=== PATIENT | female | born 1950 | race American Indian/Alaskan Native ===

== ENCOUNTER 2017-10-26 13:27 | Inpatient (IN) | payer OTHER ==
[2017-10-26 13:28] VITALS: BMI 39.6
--- NOTE | 2017-10-26 15:05 | ED PDOC ---
Arrival/HPI - General Historian: Patient - History of Present Illness Time/Duration: > week Symptom Onset: Gradual Activities at Onset: Light Context: Home <Juliette Schmidt - Last Filed: 10/26/17 16:30> <Scott Cheek DO - Last Filed: 10/26/17 22:36> - General Chief Complaint: Lower Extremity Problem/Injury Time Seen by Provider: 10/26/17 14:07 - History of Present Illness Narrative History of Present Illness (Text): 10/26/17 14:58 This is a 67 year old female with PMH of multiple sclerosis, OA, breast cancer left breast s/p lumpectomy, DM2 and HT presenting to the ER for B/L leg swelling and drainage from her right leg. She states that she has been on furosemide, losartan and HCTZ for years but has never had leg swelling. She went to the ER satellite in [place] on Tuesday and has a doppler ultrasound done which was negative for abnormalities of her legs and sent home on bactrim. She states the swelling and drainage have gotten worse since then. She denies CP, SOB, abdominal pain, headaches, cough, fevers, nausea, vomiting, urinary symptoms, melena, back pain, recent sickness and recent travel. PCP is Dr. Jurado (Juliette Schmidt) Past Medical History - Provider Review Nursing Documentation Reviewed: Yes - Infectious Disease Hx of Infectious Diseases: None - Tetanus Immunization Tetanus Immunization: Unknown - Cardiac Hx Hypertension: Yes - Pulmonary Hx Respiratory Disorders: No - Neurological Hx Multiple Sclerosis: Yes - HEENT Hx HEENT Disorder: No - Renal Hx Renal Disorder: No - Endocrine/Metabolic Hx Endocrine Disorders: Yes (DM) - Hematological/Oncological Hx Cancer: Yes (Rt breast) - Integumentary Hx Dermatological Disorder: No - Musculoskeletal/Rheumatological Hx Arthritis: Yes Hx Osteoarthritis: Yes - Genitourinary/Gynecological Hx Genitourinary Disorders: No - Psychiatric Hx Psychophysiologic Disorder: No Hx Depression: No Hx Emotional Abuse: No Hx Physical Abuse: No Hx Substance Use: No - Surgical History Hx Cholecystectomy: Yes Hx Mastectomy: Yes Hx Orthopedic Surgery: Yes (bilateral knees) - Anesthesia Hx Anesthesia: Yes - Suicidal Assessment Feels Threatened In Home Enviroment: No <Juliette Schmidt - Last Filed: 10/26/17 16:30> Family/Social History - Physician Review Nursing Documentation Reviewed: Yes Family/Social History: Unknown Family HX Smoking Status: Never Smoked Hx Alcohol Use: No Hx Substance Use: No Hx Substance Use Treatment: No <Juliette Schmidt - Last Filed: 10/26/17 16:30> Allergies/Home Meds <Juleitte Schmidt - Last Filed: 10/26/17 16:30> <Adia DOScott - Last Filed: 10/26/17 22:36> Allergies/Adverse Reactions: Allergies No Known Allergies Allergy (Verified 10/26/17 19:38) Home Medications: Home Meds Medication Instructions Recorded Confirmed Losartan/Hydrochlorothiazide 1 mg PO DAILY 11/04/14 10/26/17 [Hyzaar 12.5 mg-100 mg] Alprazolam [Xanax] 0.25 mg PO HS 10/26/17 10/26/17 Amlodipine Besylate/Benazepril 10 mg PO DAILY 10/26/17 10/26/17 [Amlodipine-Benazepril 2.5-10] Furosemide [Lasix] 20 mg PO DAILY 10/26/17 10/26/17 Levocetirizine Dihydrochloride 5 mg PO DAILY 10/26/17 10/26/17 [Xyzal] Sulfamethoxazole/Trimethoprim 1 tab PO BID 10/26/17 10/26/17 [Bactrim 400-80 mg Tablet] Review of Systems - Physician Review All systems were reviewed & negative as marked: Yes - Review of Systems Constitutional: Normal. absent: Fevers Eyes: Normal. absent: Vision Changes ENT: Normal. absent: Hearing Changes Respiratory: Normal. absent: SOB, Cough Cardiovascular: Other (B/L leg swelling and drainage from right leg). absent: Chest Pain, Palpitations Gastrointestinal: Normal. absent: Abdominal Pain, Constipation, Diarrhea, Nausea, Vomiting, Hematochezia, Hematemesis Genitourinary Female: Normal. absent: Dysuria, Frequency Musculoskeletal: Normal Skin: Normal Neurological: Normal. absent: Headache Psychiatric: Normal <Juliette Schmidt - Last Filed: 10/26/17 16:30> Physical Exam Vital Signs Reviewed: Yes Temperature: Afebrile Blood Pressure: Normal Pulse: Regular Respiratory Rate: Normal Appearance: Positive for: Well-Appearing, Non-Toxic, Comfortable Pain Distress: None Mental Status: Positive for: Alert and Oriented X 3 - Systems Exam Head: Present: Atraumatic, Normocephalic Pupils: Present: PERRL Extroacular Muscles: Present: EOMI Conjunctiva: Present: Normal Mouth: Present: Moist Mucous Membranes Neck: Present: Normal Range of Motion Respiratory/Chest: Present: Clear to Auscultation, Good Air Exchange. No: Respiratory Distress, Accessory Muscle Use Cardiovascular: Present: Regular Rate and Rhythm, Normal S1, S2. No: Murmurs Abdomen: No: Tenderness, Distention, Peritoneal Signs, Rebound, Guarding Back: Present: Normal Inspection Upper Extremity: Present: Normal Inspection. No: Cyanosis, Edema Lower Extremity: Present: NORMAL PULSES, Other (Swelling B/L legs, with gross yellow fluid and pus draining from the right anterior leg). No: CALF TENDERNESS , Cyanosis, Álvaro's Sign Neurological: Present: Speech Normal, Motor Func Grossly Intact, Normal Sensory Function Skin: Present: Warm, Dry, Normal Color. No: Rashes Psychiatric: Present: Alert, Oriented x 3, Normal Insight, Normal Concentration <Juliette Schmidt - Last Filed: 10/26/17 16:30> Vital Signs Temp Pulse Resp BP Pulse Ox 10/26/17 18:00 98.2 F 62 18 125/63 100 10/26/17 16:39 98.2 F 60 18 127/63 100 10/26/17 13:28 98.1 F 63 18 108/57 L 97 Medical Decision Making <Juliette Schmidt - Last Filed: 10/26/17 16:30> <Scott Cheek DO - Last Filed: 10/26/17 22:36> ED Course and Treatment: 10/26/17 15:09 Impression: This is a 67 year old female with PMH of multiple sclerosis, OA, breast cancer left breast s/p lumpectomy, DM2 and HT presenting to the ER for B/ L leg swelling and drainage from her right leg. Differential not limited to: Cellulitis vs DVT vs diabetic ulcer vs venous insufficiency Plan: -Blood work, BNP -Doppler -blood culture -Cxray Progress: 10/26/17 16:29 Patient resting comfortably, vitals are stable and afebrile. Patient to be admitted for observation. 10/26/17 16:30 Chest xray: no acute disease Doppler: right and left leg are negative for clots (Juliette Schmidt) 10/26/17 15:32 67 year old female presents to the Emergency department for evaluation of bilateral leg swelling. In agreement with resident note, which includes further HPI details. Patient was seen and evaluated with resident, came up with plan and treatment together. (Scott Cheek DO) - Lab Interpretations Lab Results: 10/26/17 14:46 10/26/17 14:46 Lab Results 10/26/17 14:46: Sodium 142, Potassium 3.7, Chloride 101, Carbon Dioxide 30, Anion Gap 15, BUN 25 H, Creatinine 1.5 H, Est GFR ( Amer) 42, Est GFR ( Non-Af Amer) 35, Random Glucose 102, Calcium 10.3, Total Bilirubin 0.4, AST 25, ALT 19, Alkaline Phosphatase 101, NT-Pro-B Natriuret Pep 33.4, Total Protein 8.4 H, Albumin 4.1, Globulin 4.3, Albumin/Globulin Ratio 1.0 L 10/26/17 14:46: WBC 6.5, RBC 4.40, Hgb 12.5, Hct 36.3, MCV 82.5, MCH 28.4, MCHC 34.4, RDW 15.3 H, Plt Count 266, MPV 9.9, Gran % 57.6, Lymph % (Auto) 27.6, [place] % (Auto) 8.8 H, Eos % (Auto) 5.2 H, Baso % (Auto) 0.8, Gran # 3.74, Lymph # (Auto) 1.8, [place] # (Auto) 0.6, Eos # (Auto) 0.3, Baso # (Auto) 0.05 - RAD Interpretation Radiology Orders: 10/26/17 14:48 CHEST PORTABLE [RAD] Stat DUPLEX LOWER EXTRM VEIN BILAT [US] Stat - Medication Orders Current Medication Orders: Acetaminophen (Tylenol 325mg Tab) 650 mg PO Q6H PRN PRN Reason: Pain, Mild (1-3) Alprazolam (Xanax) 0.25 mg PO HS PHIL PRN Reason: Protocol Stop: 11/02/17 22:01 Last Admin: 10/26/17 22:02 Dose: 0.25 mg Behavioural Document 10/26/17 22:02 BR (Rec: 10/26/17 22:02 [place] [id number]) Maintenance Maintenance Dose Yes Amlodipine Besylate (Norvasc) 5 mg PO DAILY PHIL Dextrose (Dextrose 50% Inj) 0 ml IV STAT PRN; Protocol PRN Reason: Hypoglycemia Protocol Hydrochlorothiazide (Microzide) 12.5 mg PO DAILY PHIL Sodium Chloride (Sodium Chloride 0.9%) 1,000 mls @ 75 mls/hr IV .[id number] PHIL Last Admin: 10/26/17 22:01 Dose: 75 mls/hr eMAR Start Stop Document 10/26/17 22:01 BR (Rec: 10/26/17 22:01 [place] [id number]) Intravenous Solution Start Date 10/26/17 Start Time 22:01 Dextrose (Dextrose 5% In Water 1000 Ml) 1,000 mls @ 0 mls/hr IV .Q0M PRN; Protocol; Per Protocol PRN Reason: Hypoglycemia Protocol Insulin Human Lispro (Humalog Low) 0 units SC ACHS PHIL PRN Reason: Protocol Last Admin: 10/26/17 22:01 Dose: Not Given Non-Admin Reason: Blood Sugar Parameter MAR Blood Glucose Document 10/26/17 22:01 BR (Rec: 10/26/17 22:02 [place] [id number]) Blood Glucose Finger Stick Blood Glucose (70-120) 109 Loratadine (Claritin) 10 mg PO DAILY PHIL Losartan Potassium (Cozaar) 100 mg PO DAILY PHIL Discontinued Medications Cefepime HCl (Maxipime 1gm) 1 gm in 100 mls @ 100 mls/hr IVPB STAT STA PRN Reason: Protocol Stop: 10/26/17 17:12 Last Admin: 10/26/17 16:43 Dose: 100 mls/hr eMAR Start Stop Document 10/26/17 16:43 LA (Rec: 10/26/17 16:43 LA [id number]) Intravenous Solution Start Date 10/26/17 Start Time 16:43 End Date 10/26/17 End time 17:43 Total Infusion Time 60 Vancomycin HCl (Vancomycin 1gm) 1 gm in 250 mls @ 167 mls/hr IVPB STAT STA PRN Reason: Protocol Stop: 10/26/17 17:42 Last Admin: 10/26/17 18:01 Dose: 167 mls/hr eMAR Start Stop Document 10/26/17 18:01 SAIMA (Rec: 10/26/17 18:01 LA [id number]) Intravenous Solution Start Date 10/26/17 Start Time 18:01 End Date 10/26/17 End time 19:31 Total Infusion Time 90 - PA / AUTOMATION CLERK / Resident Statement TONI has reviewed & agrees with the documentation as recorded. / has examined the patient and agrees with the treatment plan. <Juliette Schmidt - Last Filed: 10/26/17 16:30> - PA / AUTOMATION CLERK / Resident Statement TONI has reviewed & agrees with the documentation as recorded. / has examined the patient and agrees with the treatment plan. - Scribe Statement The provider has reviewed the documentation as recorded by the Scribe <Scott Cheek DO - Last Filed: 10/26/17 22:36> - Scribe Statement Javid Escobar. All medical record entries made by the Scribe were at my direction and personally dictated by me. I have reviewed the chart and agree that the record accurately reflects my personal performance of the history, physical exam, medical decision making, and the department course for this patient. I have also personally directed, reviewed, and agree with the discharge instructions and disposition. (Scott Cheek DO) Disposition/Present on Arrival - Present on Arrival History of DVT/PE: No History of Uncontrolled Diabetes: No Urinary Catheter: No History of Decub. Ulcer: No History Surgical Site Infection Following: None <Juliette Schmidt - Last Filed: 10/26/17 16:30> - Present on Arrival Any Indicators Present on Arrival: No - Disposition Have Diagnosis and Disposition been Completed?: Yes Disposition Time: 20:00 <Scott Cheek DO - Last Filed: 10/26/17 22:36> - Disposition Diagnosis: Cellulitis Disposition: HOSPITALIZED Condition: STABLE
[2017-10-26 15:08] LABS: BASO # 0.05 K/mm3 (0.0-2.0); BASO % 0.8 % (0.0-3.0); EOS # 0.3 (0.0-0.7); EOS % 5.2 % (1.5-5.0); GRAN # 3.74 (1.4-6.5); GRAN % 57.6 % (50.0-68.0); HEMOGLOBIN 12.5 g/dL (12.0-16.0); LYMPH # 1.8 (1.2-3.4); LYMPH % 27.6 % (22.0-35.0); MEAN CELL VOLUME 82.5 fl (80.0-105.0); MEAN CORPUSCULAR HEMOGLOBIN 28.4 pg (25.0-35.0); MEAN CORPUSCULAR HGB CONC 34.4 g/dl (31.0-37.0); MEAN PLATELET VOLUME 9.9 fl (7.0-11.0); MONO # 0.6 (0.1-0.6); MONO % 8.8 % (1.0-6.0); RBC 4.4 10^6/uL (3.5-6.1); RED CELL DISTRIBUTION WIDTH 15.3 % (11.5-14.5); WHITE BLOOD COUNT 6.5 10^3/ul (4.5-11.0)
--- NOTE | 2017-10-26 15:29 | RAD ---
Date of service: 10/26/2017 HISTORY: r/o infiltrate COMPARISON: 02/06/2012 FINDINGS: LUNGS: No active pulmonary disease. PLEURA: No significant pleural effusion identified, no pneumothorax apparent. CARDIOVASCULAR: Normal. OSSEOUS STRUCTURES: No significant abnormalities. VISUALIZED UPPER ABDOMEN: Normal. OTHER FINDINGS: None. IMPRESSION: No active disease.
[2017-10-26 15:33] LABS: ALBUMIN 4.1 g/dL (3.0-4.8); CALCIUM 10.3 mg/dL (8.4-10.5)
[2017-10-26 15:34] LABS: B-TYPE NATRIURETIC PEPTIDE 33.4 pg/mL (0-450)
[2017-10-26] MEDS ORDERED: Vancomycin 1gm in NS 250ml 1 GM/250 ML BAG IVPB STA (16:13)
[2017-10-26] MEDS ORDERED: Cefepime 1gm in NS 100ml 1 GM/100 ML BAG IVPB STA (16:13)
--- NOTE | 2017-10-26 18:10 | US ---
HISTORY: Leg pain and swelling. Evaluate for DVT PHYSICIAN(S): Tony Cuello MD. TECHNIQUE: Duplex sonography and color-flow Doppler with graded compression were used to evaluate the deep venous systems of both lower extremities. The exam is limited by body habitus and edema. The tibial veins are not well seen FINDINGS: The visualized deep venous systems of both lower extremities are sonographically normal and compressible. Normal wave forms and augmentation are seen. There is no sonographic evidence for deep venous thrombosis in the visualized segments of both lower extremities. IMPRESSION: No sonographic evidence for deep venous thrombosis in the visualized segments of both lower extremities. Limited study.
[2017-10-26] MEDS ORDERED: Dextrose 50% SYRINGE Inj (50 ml) IV PRN (21:12)
[2017-10-26] MEDS ORDERED: Sodium Chloride 0.9% 1,000 ML IV SCH (21:15)
[2017-10-26] MEDS: Insulin Lispro (humaLOG) LOW Coverage SC SCH (22:01)
[2017-10-26] MEDS ORDERED: Pneumococcal 23-Valent Vaccine IM ONE (22:43)
[2017-10-27] MEDS: Insulin Lispro (humaLOG) LOW Coverage SC SCH ×3 (07:30→22:07)
[2017-10-27 07:35] VITALS: RESP 20
--- NOTE | 2017-10-27 09:08 | CP.PCM.HP ---
<Ysabel Shearer - Last Filed: 10/27/17 13:05> History of Present Illness - History of Present Illness History of Present Illness: H&P for Fernando Christian PGY3 This is a 67yo female with past medical history of breast ca (in remission), MS , HTN who came to ED for bilateral leg swelling and R leg wound for 4 days. Patient reports her R lower leg had a wound that "busted open". She denies having any trauma, recent travel or being outside. She states her daughter encouraged her to come to ED. She states it was having some green/white drainage. She denies fever/chills, chest pain, shortness of breath, nausea/ vomiting/diarrhea, numbness/tingling, dysuria/hematuria. She had a LE US in the ED which was negative for DVT. Past medical history MS, HTN, Breast ca (2002) s/p lumpectomy chemo/rad Past surgical history: Cholecystectomy, lumpectomy Home meds: Reviewed as per MAR Allergies: NKDA Social history: Denies EtoH, tobacco or drug use. Lives with family. Works in an office. Family history: Dad- 62 from [place]. Mom- unknown Geographic Information Scientist: Dr. Yu Present on Admission - Present on Admission Any Indicators Present on Admission: No Review of Systems - Review of Systems All systems: reviewed and no additional remarkable complaints except Review of Systems: 12 point ROS reviewed as per HPI and is otherwise negative. Past Patient History - Infectious Disease Hx of Infectious Diseases: None - Tetanus Immunizations Tetanus Immunization: Unknown - Past Social History Smoking Status: Never Smoked - CARDIAC Hx Cardiac Disorders: Yes Hx Hypertension: Yes - PULMONARY Hx Respiratory Disorders: No - NEUROLOGICAL Hx Neurological Disorder: No - HEENT Hx HEENT Problems: No - RENAL Hx Chronic Kidney Disease: No - ENDOCRINE/METABOLIC Hx Endocrine Disorders: Yes (DM) - HEMATOLOGICAL/ONCOLOGICAL Hx Blood Disorders: Yes Hx Cancer: Yes (Rt breast) - INTEGUMENTARY Hx Dermatological Problems: Yes Other/Comment: 10-26-17 BILATERAL LE EDEMA +3 PITTING-CELLULITIS WITH RIGHT LE WITH BLISTER FORMATION AND WEEPING - MUSCULOSKELETAL/RHEUMATOLOGICAL Hx Musculoskeletal Disorders: Yes (BILATERAL KNEE SX) Hx Arthritis: Yes Hx Falls: Yes Hx Osteoarthritis: Yes - GASTROINTESTINAL Hx Gastrointestinal Disorders: Yes Hx Gall Bladder Disease: Yes (CHOLEYCYSTITIS) - GENITOURINARY/GYNECOLOGICAL Hx Genitourinary Disorders: Yes (RT BREAST CA -LUMPECTOMY) - PSYCHIATRIC Hx Psychophysiologic Disorder: No Hx Depression: No Hx Emotional Abuse: No Hx Physical Abuse: No Hx Substance Use: No - SURGICAL HISTORY Hx Surgeries: Yes (LUMPECTOMY RIGHT BREAST) Hx Cholecystectomy: Yes Hx Mastectomy: Yes Hx Orthopedic Surgery: Yes (bilateral knees) - ANESTHESIA Hx Anesthesia: Yes Meds Allergies/Adverse Reactions: Allergies Allergy/AdvReac Type Severity Reaction Status Date / Time No Known Allergies Allergy Verified 10/26/17 19:38 Physical Exam - Constitutional Appears: No Acute Distress - Head Exam Head Exam: ATRAUMATIC, NORMAL INSPECTION, NORMOCEPHALIC - Eye Exam Eye Exam: Normal appearance, PERRL Pupil Exam: NORMAL ACCOMODATION - ENT Exam ENT Exam: Mucous Membranes Moist - Respiratory Exam Respiratory Exam: Clear to Auscultation Bilateral, NORMAL BREATHING PATTERN. absent: Rales, Rhonchi, Wheezes - Cardiovascular Exam Cardiovascular Exam: REGULAR RHYTHM, +S1, +S2. absent: Gallop, Rubs, Systolic Murmur - GI/Abdominal Exam GI & Abdominal Exam: Normal Bowel Sounds, Soft. absent: Guarding, Mass, Rebound , Rigid, Tenderness - Extremities Exam Extremities exam: Positive for: pedal edema Additional comments: R LE aguiar wound ~2 both have scabs without drainage abour 1-3cm in size - Neurological Exam Neurological exam: Alert, CN II-XII Intact, Oriented x3 - Psychiatric Exam Psychiatric exam: Normal Affect, Normal Mood - Skin Skin Exam: Dry, Warm Results - Vital Signs Recent Vital Signs: Last Vital Signs Temp 97.6 F 10/27/17 06:00 Pulse 61 10/27/17 06:00 Resp 20 10/27/17 06:00 BP 102/70 10/27/17 06:00 Pulse Ox 94 L 10/27/17 06:00 - Labs Result Diagrams: 10/26/17 14:46 10/26/17 14:46 Labs: Laboratory Results - last 24 hr 10/26/17 21:26 POC Glucose (mg/dL) 109 Assessment & Plan - Assessment and Plan (Free Text) Assessment: This is a 67yo female with past medical history of breast ca (in remission), MS , HTN who is admitted for 1. R leg cellulitis - secondary to chronic leg edema from venous stasis 2. Bilateral leg edema - chronic - controlled from obesity v. venous stasis v. lymphedema - US negative for DVT 3. JOSUÉ on CKD IIIa - most likely pre-renal 3. HTN- controlled 4. MS - controlled Plan: ID is on consult. Wound care is following. Continue Losartan, HCTZ and Norvasc. Continue IV fluids. Wound cultures pending. GI and DVT prophylaxis. Case seen, discussed and reviewed with Dr. Duff. Fernando Shearer PGY3 - Date & Time Date: 10/27/17 Time: 11:00 <Dov Duff S - Last Filed: 10/27/17 23:14> Results - Vital Signs Recent Vital Signs: Last Vital Signs Temp 97.7 F 10/27/17 23:03 Pulse 69 10/27/17 23:03 Resp 20 10/27/17 23:03 BP 118/56 L 10/27/17 23:03 Pulse Ox 97 10/27/17 23:03 - Labs Result Diagrams: 10/26/17 14:46 10/26/17 14:46 Labs: Laboratory Results - last 24 hr 10/27/17 16:42 POC Glucose (mg/dL) 94 Assessment & Plan - Assessment and Plan (Free Text) Plan: Pt seen and examined. I have reviewed the note of the medical coding instructor and agree with it. I have discussed the assessment and plan with the resident. I have reviewed the patient's labs and medications. Pt with R lower leg cellulitis and discharge from the leg. Pt started on IV Abx. Will get ID evaluation. She will be placed on Losartan, HCTZ and Norvasc for HTN.
[2017-10-27] MEDS ORDERED: Linezolid 600 mg in D5W 300 ml 600 MG/300 ML BAG IVPB SCH (10:00)
--- NOTE | 2017-10-27 12:27 | CP.PCM.CON ---
History of Present Illness - History of Present Illness History of Present Illness: 67 year old female with PMH of breast cancer right breast S/P lumpectomy and chemotherapy and radiotherapy, morbid obesity with BMI 40, multiple sclerosis, S /P cholecystectomy came in to [facility] complaining of bilateral lower extremity swelling but with open wound on the right lower extremity since 4-5 days ago, with some serosanguinous oozing. It is associated with pain and swelling. She denies animal contacts, no insect bites or tick bites, denies specific trauma to the leg, no nausea or vomiting, no chest pain, no SOB, no headache or dizziness, no sore throat, no cough or rhinorrhea, no abdominal pain, no diarrhea, no dysuria. She denies walking barefoot on soil, has not been to wooded areas, denies soaking her feet and legs in water. Infectious diseases consult is requested to further evaluate and manage. Review of Systems - Review of Systems All systems: reviewed and no additional remarkable complaints except (as per HPI ) Past Patient History - Infectious Disease Hx of Infectious Diseases: None - Tetanus Immunizations Tetanus Immunization: Unknown - Past Social History Smoking Status: Never Smoked - CARDIAC Hx Cardiac Disorders: Yes Hx Hypertension: Yes - PULMONARY Hx Respiratory Disorders: No - NEUROLOGICAL Hx Neurological Disorder: No - HEENT Hx HEENT Problems: No - RENAL Hx Chronic Kidney Disease: No - ENDOCRINE/METABOLIC Hx Endocrine Disorders: Yes (DM) - HEMATOLOGICAL/ONCOLOGICAL Hx Blood Disorders: Yes Hx Cancer: Yes (Rt breast) - INTEGUMENTARY Hx Dermatological Problems: Yes Other/Comment: 10-26-17 BILATERAL LE EDEMA +3 PITTING-CELLULITIS WITH RIGHT LE WITH BLISTER FORMATION AND WEEPING - MUSCULOSKELETAL/RHEUMATOLOGICAL Hx Musculoskeletal Disorders: Yes (BILATERAL KNEE SX) Hx Arthritis: Yes Hx Falls: Yes Hx Osteoarthritis: Yes - GASTROINTESTINAL Hx Gastrointestinal Disorders: Yes Hx Gall Bladder Disease: Yes (CHOLEYCYSTITIS) - GENITOURINARY/GYNECOLOGICAL Hx Genitourinary Disorders: Yes (RT BREAST CA -LUMPECTOMY) - PSYCHIATRIC Hx Psychophysiologic Disorder: No Hx Depression: No Hx Emotional Abuse: No Hx Physical Abuse: No Hx Substance Use: No - SURGICAL HISTORY Hx Surgeries: Yes (LUMPECTOMY RIGHT BREAST) Hx Cholecystectomy: Yes Hx Mastectomy: Yes Hx Orthopedic Surgery: Yes (bilateral knees) - ANESTHESIA Hx Anesthesia: Yes Meds Allergies/Adverse Reactions: Allergies Allergy/AdvReac Type Severity Reaction Status Date / Time No Known Allergies Allergy Verified 10/26/17 19:38 - Medications Medications: Current Medications Acetaminophen (Tylenol 325mg Tab) 650 mg PO Q6H PRN PRN Reason: Pain, Mild (1-3) Alprazolam (Xanax) 0.25 mg PO HS PHIL PRN Reason: Protocol Stop: 11/02/17 22:01 Last Admin: 10/26/17 22:02 Dose: 0.25 mg Amlodipine Besylate (Norvasc) 5 mg PO DAILY [facility] Dextrose (Dextrose 50% Inj) 0 ml IV STAT PRN; Protocol PRN Reason: Hypoglycemia Protocol Hydrochlorothiazide (Microzide) 12.5 mg PO DAILY [facility] Sodium Chloride (Sodium Chloride 0.9%) 1,000 mls @ 75 mls/hr IV .[id number] [facility] Last Admin: 10/26/17 22:01 Dose: 75 mls/hr Dextrose (Dextrose 5% In Water 1000 Ml) 1,000 mls @ 0 mls/hr IV .Q0M PRN; Protocol; Per Protocol PRN Reason: Hypoglycemia Protocol Insulin Human Lispro (Humalog Low) 0 units SC ACHS [facility] PRN Reason: Protocol Last Admin: 10/26/17 22:01 Dose: Not Given Loratadine (Claritin) 10 mg PO DAILY [facility] Losartan Potassium (Cozaar) 100 mg PO DAILY [facility] Physical Exam - Constitutional Appears: Chronically Ill - Head Exam Head Exam: NORMAL INSPECTION - ENT Exam ENT Exam: Mucous Membranes Moist - Neck Exam Neck exam: Negative for: Meningismus - Respiratory Exam Respiratory Exam: Decreased Breath Sounds - Cardiovascular Exam Cardiovascular Exam: +S1, +S2 - GI/Abdominal Exam GI & Abdominal Exam: Soft. absent: Tenderness - Extremities Exam Additional comments: right leg with dressings in place Results - Vital Signs Recent Vital Signs: Last Vital Signs Temp 97.9 F 10/26/17 22:24 Pulse 77 10/26/17 22:24 Resp 18 10/26/17 22:24 BP 122/59 L 10/26/17 22:24 Pulse Ox 96 10/26/17 21:59 - Labs Result Diagrams: 10/26/17 14:46 10/26/17 14:46 Labs: Laboratory Results - last 24 hr 10/26/17 21:26 POC Glucose (mg/dL) 109 Assessment & Plan - Assessment and Plan (Free Text) Plan: Assessment Probable right leg infected wound with cellulitis in this patient with probable bilateral lower extremity lymphedema breast cancer right breast S/P lumpectomy and chemotherapy and radiotherapy morbid obesity with BMI 40 multiple sclerosis S/P cholecystectomy Plan Started patient on Zyvox pending blood and wound cx; follow up wound care plans and recommendations will monitor clinically
--- NOTE | 2017-10-28 05:01 | CP.PCM.PN ---
Objective - Vital Signs/Intake and Output Vital Signs (last 24 hours): Temp Pulse Resp BP Pulse Ox 97.7 F 69 20 118/56 L 97 10/27/17 23:03 10/27/17 23:03 10/27/17 23:03 10/27/17 23:03 10/27/17 23:03 Intake and Output: 10/27/17 10/28/17 18:59 06:59 Intake Total 480 Balance 480 - Medications Medications: Current Medications Acetaminophen (Tylenol 325mg Tab) 650 mg PO Q6H PRN PRN Reason: Pain, Mild (1-3) Last Admin: 10/28/17 00:06 Dose: 650 mg Alprazolam (Xanax) 0.25 mg PO HS [facility] PRN Reason: Protocol Stop: 11/02/17 22:01 Last Admin: 10/27/17 22:02 Dose: 0.25 mg Amlodipine Besylate (Norvasc) 5 mg PO DAILY [facility] Last Admin: 10/27/17 09:47 Dose: 5 mg Dextrose (Dextrose 50% Inj) 0 ml IV STAT PRN; Protocol PRN Reason: Hypoglycemia Protocol Famotidine (Pepcid) 20 mg PO HS [facility] Last Admin: 10/27/17 22:04 Dose: 20 mg Heparin Sodium (Porcine) (Heparin) 5,000 units SC Q12 [facility] PRN Reason: Protocol Last Admin: 10/27/17 22:05 Dose: 5,000 units Hydrochlorothiazide (Microzide) 12.5 mg PO DAILY [facility] Last Admin: 10/27/17 09:48 Dose: 12.5 mg Sodium Chloride (Sodium Chloride 0.9%) 1,000 mls @ 75 mls/hr IV .[id number] [facility] Last Admin: 10/26/17 22:01 Dose: 75 mls/hr Dextrose (Dextrose 5% In Water 1000 Ml) 1,000 mls @ 0 mls/hr IV .Q0M PRN; Protocol; Per Protocol PRN Reason: Hypoglycemia Protocol Insulin Human Lispro (Humalog Low) 0 units SC ACHS [facility] PRN Reason: Protocol Last Admin: 10/27/17 22:07 Dose: Not Given Linezolid (Zyvox) 600 mg PO Q12 [facility] PRN Reason: Protocol Last Admin: 10/27/17 22:04 Dose: 600 mg Loratadine (Claritin) 10 mg PO DAILY [facility] Last Admin: 10/27/17 09:48 Dose: 10 mg Losartan Potassium (Cozaar) 100 mg PO DAILY [facility] Last Admin: 10/27/17 09:47 Dose: 100 mg
[2017-10-28 07:12] VITALS: BP 116/71; PULSE 79; TEMP 98.5; O2SAT 98
--- NOTE | 2017-10-28 09:56 | CP.PCM.DIS ---
<Jose LuisYsabel hurt - Last Filed: 10/28/17 11:31> Provider - Provider Date of Admission: 10/27/17 16:28 Attending physician: Dov Duff MD Primary care physician: Dov Duff MD Consults: ID: [id number] Time Spent in preparation of Discharge (in minutes): 35 Hospital Course - Lab Results Lab Results: Most Recent Lab Values WBC 6.5 10^3/ul (4.5-11.0) 10/26/17 14:46 RBC 4.40 10^6/uL (3.5-6.1) 10/26/17 14:46 Hgb 12.5 g/dL (12.0-16.0) 10/26/17 14:46 Hct 36.3 % (36.0-48.0) 10/26/17 14:46 MCV 82.5 fl (80.0-105.0) 10/26/17 14:46 MCH 28.4 pg (25.0-35.0) 10/26/17 14:46 MCHC 34.4 g/dl (31.0-37.0) 10/26/17 14:46 RDW 15.3 % (11.5-14.5) H 10/26/17 14:46 Plt Count 266 10^3/uL (120.0-450.0) 10/26/17 14:46 MPV 9.9 fl (7.0-11.0) 10/26/17 14:46 Gran % 57.6 % (50.0-68.0) 10/26/17 14:46 Lymph % (Auto) 27.6 % (22.0-35.0) 10/26/17 14:46 Vernon % (Auto) 8.8 % (1.0-6.0) H 10/26/17 14:46 Eos % (Auto) 5.2 % (1.5-5.0) H 10/26/17 14:46 Baso % (Auto) 0.8 % (0.0-3.0) 10/26/17 14:46 Gran # 3.74 (1.4-6.5) 10/26/17 14:46 Lymph # (Auto) 1.8 (1.2-3.4) 10/26/17 14:46 Vernon # (Auto) 0.6 (0.1-0.6) 10/26/17 14:46 Eos # (Auto) 0.3 (0.0-0.7) 10/26/17 14:46 Baso # (Auto) 0.05 K/mm3 (0.0-2.0) 10/26/17 14:46 Sodium 142 mmol/L (132-148) 10/26/17 14:46 Potassium 3.7 mmol/L (3.6-5.0) 10/26/17 14:46 Chloride 101 mmol/L (98-107) 10/26/17 14:46 Carbon Dioxide 30 mmol/L (21-33) 10/26/17 14:46 Anion Gap 15 (10-20) 10/26/17 14:46 BUN 25 mg/dL (7-21) H 10/26/17 14:46 Creatinine 1.5 mg/dl (0.7-1.2) H 10/26/17 14:46 Est GFR ( Amer) 42 10/26/17 14:46 Est GFR (Non-Af Amer) 35 10/26/17 14:46 POC Glucose (mg/dL) 117 mg/dL (65-110) H 10/28/17 06:40 Random Glucose 102 mg/dL (70-110) 10/26/17 14:46 Calcium 10.3 mg/dL (8.4-10.5) 10/26/17 14:46 Total Bilirubin 0.4 mg/dL (0.2-1.3) 10/26/17 14:46 AST 25 U/L (14-36) 10/26/17 14:46 ALT 19 U/L (7-56) 10/26/17 14:46 Alkaline Phosphatase 101 U/L (38-126) 10/26/17 14:46 NT-Pro-B Natriuret Pep 33.4 pg/mL (0-450) 10/26/17 14:46 Total Protein 8.4 g/dL (5.8-8.3) H 10/26/17 14:46 Albumin 4.1 g/dL (3.0-4.8) 10/26/17 14:46 Globulin 4.3 gm/dL 10/26/17 14:46 Albumin/Globulin Ratio 1.0 (1.1-1.8) L 10/26/17 14:46 - Hospital Course Hospital Course: This is a 67yo female with past medical history of breast ca (in remission), MS , HTN who is admitted for R leg cellulitis. Patient is afebrile and does not have leukocytosis. She was evaluated by ID and placed on Zyvox. Blood culture negative and wound culture pending. Patient also had leg edema. LE US negative for DVT. 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 Patient found to have mild JOSUÉ most likely pre-renal from dehydration. Patient was evaluated by PT and will be sent home with services. Patient will continue her home meds. She will get PT twice per week. She also got a prescription for rolling walker. She will complete 6 more days of Po Zyvox. I spoke with wound care nurse who states patient will need her wound to be cleansed with NS and then have Xeroform and Kerlex three times per week. Discussed plan with patient. Patient verbalized and agreed with discharge plan. - Date & Time of H&P Date of H&P: 10/28/17 Time of H&P: 11:01 Discharge Exam - Head Exam Head Exam: ATRAUMATIC, NORMAL INSPECTION, NORMOCEPHALIC - Eye Exam Eye Exam: Normal appearance, PERRL Pupil Exam: NORMAL ACCOMODATION - ENT Exam ENT Exam: Mucous Membranes Moist - Respiratory Exam Respiratory Exam: Clear to PA & Lateral, NORMAL BREATHING PATTERN, UNREMARKABLE. absent: Rales, Rhonchi, Wheezes - Cardiovascular Exam Cardiovascular Exam: REGULAR RHYTHM, +S1, +S2. absent: Systolic Murmur - GI/Abdominal Exam GI & Abdominal Exam: Normal Bowel Sounds, Soft, Unremarkable. absent: Mass, Rebound, Rigid, Tenderness - Extremities Exam Extremities exam: pedal edema Additional comments: R leg wound- no drainage- crusting. Dressing in place- clean and dry. - Neurological Exam Neurological exam: Alert, CN II-XII Intact, Oriented x3 - Psychiatric Exam Psychiatric exam: Normal Affect, Normal Mood - Skin Skin Exam: Dry, Normal Color Discharge Plan - Discharge Medications Prescriptions: Linezolid [Zyvox] 600 mg PO Q12 #12 tab - Follow Up Plan Condition: STABLE Disposition: HOME/ ROUTINE Instructions: Bacterial Wound Culture, Cellulitis (DC) Additional Instructions: 1. Follow up with your airborne operations as outpatient 2. Follow up with your PMD in 1-2 weeks 3. Continue your home medications 4. Complete 6 days of antibiotics. 5. WOUND NURSE WOUND CLEANSED WITH NORMAL sALINE , XEROFAM APPLIED WRAPPED WITH KERLEX X 3 DAYS. Referrals: Dov Duff MD [Primary Care Provider] - <Dov Duff - Last Filed: 10/28/17 21:12> Provider - Provider Date of Admission: 10/27/17 16:28 Attending physician: Dov Duff MD Primary care physician: Dov Duff MD Hospital Course - Lab Results Lab Results: Most Recent Lab Values WBC 6.5 10^3/ul (4.5-11.0) 10/26/17 14:46 RBC 4.40 10^6/uL (3.5-6.1) 10/26/17 14:46 Hgb 12.5 g/dL (12.0-16.0) 10/26/17 14:46 Hct 36.3 % (36.0-48.0) 10/26/17 14:46 MCV 82.5 fl (80.0-105.0) 10/26/17 14:46 MCH 28.4 pg (25.0-35.0) 10/26/17 14:46 MCHC 34.4 g/dl (31.0-37.0) 10/26/17 14:46 RDW 15.3 % (11.5-14.5) H 10/26/17 14:46 Plt Count 266 10^3/uL (120.0-450.0) 10/26/17 14:46 MPV 9.9 fl (7.0-11.0) 10/26/17 14:46 Gran % 57.6 % (50.0-68.0) 10/26/17 14:46 Lymph % (Auto) 27.6 % (22.0-35.0) 10/26/17 14:46 Vernon % (Auto) 8.8 % (1.0-6.0) H 10/26/17 14:46 Eos % (Auto) 5.2 % (1.5-5.0) H 10/26/17 14:46 Baso % (Auto) 0.8 % (0.0-3.0) 10/26/17 14:46 Gran # 3.74 (1.4-6.5) 10/26/17 14:46 Lymph # (Auto) 1.8 (1.2-3.4) 10/26/17 14:46 Vernon # (Auto) 0.6 (0.1-0.6) 10/26/17 14:46 Eos # (Auto) 0.3 (0.0-0.7) 10/26/17 14:46 Baso # (Auto) 0.05 K/mm3 (0.0-2.0) 10/26/17 14:46 Sodium 142 mmol/L (132-148) 10/26/17 14:46 Potassium 3.7 mmol/L (3.6-5.0) 10/26/17 14:46 Chloride 101 mmol/L (98-107) 10/26/17 14:46 Carbon Dioxide 30 mmol/L (21-33) 10/26/17 14:46 Anion Gap 15 (10-20) 10/26/17 14:46 BUN 25 mg/dL (7-21) H 10/26/17 14:46 Creatinine 1.5 mg/dl (0.7-1.2) H 10/26/17 14:46 Est GFR ( Amer) 42 10/26/17 14:46 Est GFR (Non-Af Amer) 35 10/26/17 14:46 POC Glucose (mg/dL) 105 mg/dL (65-110) 10/28/17 11:23 Random Glucose 102 mg/dL (70-110) 10/26/17 14:46 Calcium 10.3 mg/dL (8.4-10.5) 10/26/17 14:46 Total Bilirubin 0.4 mg/dL (0.2-1.3) 10/26/17 14:46 AST 25 U/L (14-36) 10/26/17 14:46 ALT 19 U/L (7-56) 10/26/17 14:46 Alkaline Phosphatase 101 U/L (38-126) 10/26/17 14:46 NT-Pro-B Natriuret Pep 33.4 pg/mL (0-450) 10/26/17 14:46 Total Protein 8.4 g/dL (5.8-8.3) H 10/26/17 14:46 Albumin 4.1 g/dL (3.0-4.8) 10/26/17 14:46 Globulin 4.3 gm/dL 10/26/17 14:46 Albumin/Globulin Ratio 1.0 (1.1-1.8) L 10/26/17 14:46 - Hospital Course Hospital Course: Pt seen and examined. I have reviewed the note of the medical affairs manager and agree with it. I have discussed the assessment and plan with the resident. I have reviewed the patient's labs and medications. Pt with R leg cellulitis that is improving. Will place on PO Abx and send her home. She does not want to go to [facility] and [facility]CU will not accept her due to her insurance. She will f/u as outpt.
[2017-10-28] MEDS: Insulin Lispro (humaLOG) LOW Coverage SC SCH (10:50)
== END 2017-10-28 17:00 | disposition home health service (06) | DRG 603 ==
LOC: ED 13:27 → ERH 16:14 → 5RNO 18:17 → OBSVTOIN 10-27 16:28 → 5RNO 10-28 11:04
PROVIDERS: ADMIT Internal Medicine Nephrology; ATTEND Internal Medicine Nephrology
DX: L03.115 Cellulitis of right lower limb (principal); N17.9 Acute kidney failure, unspecified; Z68.41 Body mass index [BMI] 40.0-44.9, adult; G35 Multiple sclerosis; I12.9 Hypertensive chronic kidney disease with stage 1 through stage 4 chronic kidney disease, or unspecified chronic kidney disease; N18.3 Chronic kidney disease, stage 3 (moderate); I89.0 Lymphedema, not elsewhere classified; I87.8 Other specified disorders of veins; E86.0 Dehydration; E66.01 Morbid (severe) obesity due to excess calories; E11.22 Type 2 diabetes mellitus with diabetic chronic kidney disease; Z85.3 Personal history of malignant neoplasm of breast; Z90.49 Acquired absence of other specified parts of digestive tract; Z90.10 Acquired absence of unspecified breast and nipple; Z92.21 Personal history of antineoplastic chemotherapy

== ENCOUNTER 2018-04-26 10:09 | Outpatient (CLI) | payer OTHER | END 2018-04-26 10:10 | disposition home or self-care (01) | LOC: LAB 10:09 ==

== ENCOUNTER 2018-08-10 07:20 | Outpatient (CLI) | payer OTHER | END 2018-08-11 07:21 | disposition home or self-care (01) | LOC: CARDIO 07:20 | DX: R07.9 Chest pain, unspecified (principal); R07.89 Other chest pain (principal); R94.31 Abnormal electrocardiogram [ECG] [EKG]; R53.83 Other fatigue ==

== ENCOUNTER 2018-08-20 00:11 | Observation (INO) | payer OTHER ==
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
[2018-08-20 01:41] LABS: HEMOGLOBIN 12.9 g/dL (12.0-16.0); MEAN CELL VOLUME 85.2 fl (80.0-105.0); MEAN CORPUSCULAR HGB CONC 32.8 g/dl (31.0-37.0); MEAN PLATELET VOLUME 9.7 fl (7.0-11.0); RBC 4.61 10^6/uL (3.5-6.1); RED CELL DISTRIBUTION WIDTH 15.6 % (11.5-14.5); WHITE BLOOD COUNT 6.4 10^3/uL (4.5-11.0)
[2018-08-20 01:49] LABS: INR 0.98; PARTIAL THROMBOPLASTIN TIME 30.8 Seconds (26.9-38.3); PROTHROMBIN TIME 10.9 SECONDS (9.4-12.5)
[2018-08-20 01:57] LABS: BLOOD UREA NITROGEN 24 mg/dL (7-21); CALCIUM 10.2 mg/dL (8.4-10.5); GFR NON-AFRICAN AMERICAN 45
[2018-08-20 02:00] LABS: ALB/GLOB RATIO 0.9 (1.1-1.8); ALBUMIN 3.7 g/dL (3.0-4.8); ALT/SGPT 20 U/L (7-56); AST/SGOT 28 U/L (14-36)
[2018-08-20 02:11] LABS: TROPONIN I < 0.01 ng/mL
[2018-08-20 05:25] VITALS: BMI 45.4
[2018-08-20] MEDS ORDERED: Oxycodone/Acetaminophen 5/325 mg Tab PO PRN (06:32)
[2018-08-20] MEDS: Albuterol-Ipratrop 3 mg / 0.5 (3 ml) UD IH SCH ×3 (08:00→19:42)
[2018-08-20] MEDS: Potassium Chloride 10 mEq ER Tab PO SCH (08:00)
--- NOTE | 2018-08-20 10:11 | RAD ---
Date of service: 08/20/2018 HISTORY: chest pain COMPARISON: 10/26/2017 TECHNIQUE: 1 view obtained. FINDINGS: LUNGS: No active pulmonary disease. PLEURA: No significant pleural effusion identified, no pneumothorax apparent. CARDIOVASCULAR: No aortic atherosclerotic calcification present. Normal cardiac size. No pulmonary vascular congestion. OSSEOUS STRUCTURES: No significant abnormalities. VISUALIZED UPPER ABDOMEN: Normal. OTHER FINDINGS: Left subclavian Port-A-Cath none. IMPRESSION: No active disease.
[2018-08-20] MEDS: cefTRIAXone 1 gm 1 GM/100 ML BAG IVPB SCH (10:24)
[2018-08-20 16:44] VITALS: RESP 18; TEMP 98; O2SAT 99
--- NOTE | 2018-08-20 18:17 | CARD ---
APPROVED REPORT Date of service: 08/20/2018 EKG Measurement Heart [id number] <Conclusion> Normal sinus rhythm Normal ECG
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
[2018-08-20] MEDS: Oxycodone/Acetaminophen 5/325 mg Tab PO PRN (22:21)
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
[2018-08-21] MEDS: Albuterol-Ipratrop 3 mg / 0.5 (3 ml) UD IH SCH ×3 (01:15→13:05)
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
[2018-08-21 03:01] VITALS: PULSE 60
--- NOTE | 2018-08-21 08:07 | CP.PCM.PN ---
Subjective - Date & Time of Evaluation Date of Evaluation: 08/21/18 Time of Evaluation: 07:05 - Subjective Subjective: Awake, alert, sitting on chair, denies chest pain Reason for consultation and follow up: Cardiac evaluation of chest pain, history of breast cancer,multiple sclerosis,morbidly obese Seen and examined by me and Dr. Pendleton Objective - Vital Signs/Intake and Output Vital Signs (last 24 hours): Temp Pulse Resp BP Pulse Ox 98 F 60 18 119/70 99 08/20/18 16:43 08/21/18 06:00 08/20/18 16:43 08/20/18 16:43 08/20/18 16:43 Intake and Output: 08/21/18 08/21/18 06:59 18:59 Intake Total 120 Balance 120 - Medications Medications: Current Medications Albuterol/Ipratropium (Duoneb 3 Mg/0.5 Mg (3 Ml) Ud) 3 ml IH [id number] PHIL Last Admin: 08/21/18 07:31 Dose: 3 ml Alprazolam (Xanax) 0.25 mg PO HS PHIL; Protocol Stop: 08/27/18 22:01 Last Admin: 08/20/18 22:21 Dose: 0.25 mg Furosemide (Lasix) 40 mg IVP DAILY PHIL Last Admin: 08/20/18 10:23 Dose: 40 mg Ceftriaxone Sodium (Rocephin 1 Gram Ivpb) 1 gm in 100 mls @ 100 mls/hr IVPB DAILY PHIL; Protocol Last Admin: 08/20/18 10:24 Dose: 100 mls/hr Losartan Potassium (Cozaar) 50 mg PO DAILY PHIL Oxycodone/Acetaminophen (Percocet 5/325 Mg Tab) 1 tab PO DAILY PRN PRN Reason: Pain, moderate (4-7) Stop: 08/23/18 12:45 Last Admin: 08/20/18 22:21 Dose: 1 tab Potassium Chloride (Klor-Con 10) 10 meq PO BRK PHIL Last Admin: 08/20/18 08:00 Dose: 10 meq - Labs Labs: 08/20/18 01:00 08/20/18 01:00 PT 10.9 SECONDS (9.4-12.5) 08/20/18 01:00 INR 0.98 08/20/18 01:00 APTT 30.8 Seconds (26.9-38.3) 08/20/18 01:00 - Constitutional Appears: Non-toxic, No Acute Distress - Head Exam Head Exam: NORMAL INSPECTION, NORMOCEPHALIC - Eye Exam Eye Exam: Normal appearance Pupil Exam: NORMAL ACCOMODATION - ENT Exam ENT Exam: Mucous Membranes Moist, Normal Exam - Respiratory Exam Respiratory Exam: Decreased Breath Sounds, Clear to Ausculation Bilateral, NORMAL BREATHING PATTERN - Cardiovascular Exam Cardiovascular Exam: REGULAR RHYTHM, +S1, +S2 Additional comments: telemetry NSR 60's - GI/Abdominal Exam GI & Abdominal Exam: Soft, Normal Bowel Sounds - Extremities Exam Extremities Exam: Full ROM Additional comments: 1+edema - Neurological Exam Neurological Exam: Alert, Awake, Oriented x3 - Psychiatric Exam Psychiatric exam: Normal Affect, Normal Mood - Skin Skin Exam: Dry, Normal Color, Warm Assessment and Plan - Assessment and Plan (Free Text) Assessment: A 68 year old morbidly obese female who came in to the ER due to midsternal chest pain after a verbal argument with grand daughter's friend. She claimed to be so upset and had anxiety attack. History of right breast cancer with lumpectomy, multiple sclerosis, hypertension, diabetes. Also complaints of leg pain, ultrasound negative for DVT. Troponin normal, EKG normal sinus rhythm, no ischemia. Stress test done on 08/11/18 showed normal results with LVEF 73%. Will order echo to evaluate LV function. Atrypical chest pain, no evidence of acute myocardial syndrome. Chest pain free now. Discontinue telemetry. May discharge from cardiac standpoint. Plan: No distress, denies chest pain Heart rate stable Blood pressure stable Cardiac status stable Echo to evaluate LV function On Lasix 40 mg daily, Cozaar 50 mg daily Continue current treatment Continue current medications Discontinue telemetry. May discharge from cardiac standpoint. Will follow up Plan and treatment discussed with Dr. Pendleton
--- NOTE | 2018-08-21 11:08 | US ---
PROCEDURE: Right lower extremity venous US HISTORY: Leg pain and swelling. Evaluate for DVT. PHYSICIAN(S): Tony Cuello M.D. TECHNIQUE: Duplex sonography and color-flow Doppler with graded compression were used to evaluate the deep venous system of the right lower extremity. The exam is limited by body habitus FINDINGS: The visualized deep venous system of the right lower extremity is sonographically normal and compressible. Normal waveforms and augmentation are seen. There is no sonographic evidence for deep venous thrombosis in the visualized segments of the right lower extremity. IMPRESSION: 1. No sonographic evidence for deep venous thrombosis in the visualized segments of the right lower extremity. 2. Limited study.
[2018-08-21] MEDS: cefTRIAXone 1 gm 1 GM/100 ML BAG IVPB SCH (11:16)
[2018-08-21] MEDS: Potassium Chloride 10 mEq ER Tab PO SCH (11:17)
[2018-08-21 11:26] VITALS: BP 119/69
[2018-08-21] MEDS: Oxycodone/Acetaminophen 5/325 mg Tab PO PRN (11:38)
--- NOTE | 2018-08-22 03:09 | DS ---
HISTORY OF PRESENT ILLNESS: The patient is a 68-year-old, seen and examined, doing very well. No more chest pain noted that was probably an extreme anxiety that has caused her chest pain and shortness of breath. PHYSICAL EXAMINATION: GENERAL: The patient is awake and alert and able to communicate. VITAL SIGNS: The patient is afebrile, pulse 60, respirations 18, and blood pressure 119/69. LUNGS: Bilateral fair airflow. No rhonchi or crackle. HEART: S1 and S2 audible. ABDOMEN: Soft and nontender. No rebound. No guarding. NEUROLOGIC: The patient is awake and alert, able to communicate, and able to move all extremities. ASSESSMENT: 1. Chest pain noncardiac. 2. History of multiple sclerosis. 3. Morbid obesity. 4. History of hypertension. 5. Bilateral leg cellulitis. 6. Bilateral leg edema. 7. History of carcinoma of breast, status post right breast lumpectomy. PLAN: The patient is currently stable. She will be maintained on losartan, potassium, Lasix, and Xanax as needed. She will resume her medication at home and we will follow up with PMD. Eliel Haji MD
== END 2018-08-21 13:42 | disposition home or self-care (01) ==
LOC: ED 00:11 → ERH 03:08 → 3RSO 04:08
PROVIDERS: ADMIT Internal Medicine; ATTEND Internal Medicine
DX: R07.89 Other chest pain (principal); I10 Essential (primary) hypertension; G35 Multiple sclerosis; E66.01 Morbid (severe) obesity due to excess calories; F41.1 Generalized anxiety disorder; E11.9 Type 2 diabetes mellitus without complications; L03.116 Cellulitis of left lower limb; L03.115 Cellulitis of right lower limb; I87.2 Venous insufficiency (chronic) (peripheral); Z85.3 Personal history of malignant neoplasm of breast; Z90.49 Acquired absence of other specified parts of digestive tract; Z90.10 Acquired absence of unspecified breast and nipple; M19.90 Unspecified osteoarthritis, unspecified site; Z68.42 Body mass index [BMI] 45.0-49.9, adult
CPT/HCPCS: 71045; 80053; 82550; 83615; 84484; 85027; 85610; 85730; 93005; 93971; 94640; 94760; 97116; 97161; 99283; G0378; G8978; G8979; J0696; J1940